=== PATIENT | male | born 1995 | race Hispanic/Latino ===

== ENCOUNTER 2018-03-01 20:51 | Emergency (ER) | payer OTHER, SELFPAY ==
[2018-03-01 21:06] VITALS: BP 123/63; PULSE 72; RESP 15; TEMP 36.7; O2SAT 99
--- NOTE | 2018-03-01 21:09 | DI.CT.S_ITS ---
PROCEDURE: CT HEAD/BRAIN WO CON INDICATIONS: fall, head injury, +LOC TECHNIQUE: Noncontrast 4.5 mm thick angled axial sections acquired from the foramen magnum to the vertex, with coronal and sagittal reformats. For radiation dose reduction, the following was used: automated exposure control, adjustment of mA and/or kV according to patient size. COMPARISON: None. FINDINGS: Image quality: Excellent. CSF spaces: Basal cisterns are patent. No extra-axial fluid collections. Ventricles are normal in size and shape. Brain: No midline shift. No intracranial masses or hemorrhage. Addison-white matter interface is normal. Skull and face: Calvarium and visualized facial bones are intact, without suspicious lesions. Right periorbital and facial soft tissue swelling Sinuses: Visualized sinuses and mastoids are clear. IMPRESSION: No acute intracranial process. Right periorbital/facial soft tissue swelling. Dictated by: Tahir France M.D. on 03/02/2018 at 10:51 Approved by: Tahir France M.D. on 03/02/2018 at 10:52
--- NOTE | 2018-03-01 21:09 | DI.CT.S_ITS ---
PROCEDURE: CT CERVICAL SPINE WO CON INDICATIONS: fall, head injury, midline neck pain TECHNIQUE: Noncontrast 3 mm thick sections acquired from the skull base to the T4 level. Sagittal and coronal reformats were then constructed. For radiation dose reduction, the following was used: automated exposure control, adjustment of mA and/or kV according to patient size. COMPARISON: None. FINDINGS: Image quality: Excellent. Bones: No fractures or dislocations. Visualized superior ribs are intact. Soft tissues: Prevertebral soft tissues are normal in thickness. No paravertebral hematomas. No apical pneumothoraces. IMPRESSION: No fracture. Dictated by: Tahir France M.D. on 03/02/2018 at 10:52 Approved by: Tahir France M.D. on 03/02/2018 at 10:55
--- NOTE | 2018-03-01 21:09 | DI.RAD.S_ITS ---
PROCEDURE: XR RIBS LT MIN 3V W CXR1V INDICATIONS: fall with Left sided rib pain, Shortness of breath, Right clavicle pain TECHNIQUE: 2 views of the left ribs were acquired, along with a single view chest. COMPARISON: None. FINDINGS: Surgical changes and devices: None. Bones and chest wall: No fractures. There is subluxation of the lateral right clavicle relative to the acromion approximately one shaft width. There is also widening of the coracoclavicular interval measuring 25 mm. No suspicious bony lesions. Overlying soft tissues appear unremarkable. Lungs and pleura: No pleural effusions or pneumothorax. Lungs appear clear. Mediastinum: Mediastinal contours appear normal. Heart size is normal. IMPRESSION: No rib fracture. No acute cardiopulmonary disease. Right acromioclavicular separation Dictated by: Tahir France M.D. on 03/02/2018 at 10:31 Approved by: Tahir France M.D. on 03/02/2018 at 10:33
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
[2018-03-01] MEDS: HYDROCODONE/ACET 5/325 PREPACK 1 BOTTLE MISC (22:46)
[2018-03-01 23:33] VITALS: BP 129/63; PULSE 64; RESP 14; O2SAT 96
== END 2018-03-01 23:45 | disposition home or self-care (01) ==
PROVIDERS: Emergency Provider Emergency Medicine
DX: S06.0X9A Concussion with loss of consciousness of unspecified duration, initial encounter (principal); S01.81XA Laceration without foreign body of other part of head, initial encounter; S43.109A Unspecified dislocation of unspecified acromioclavicular joint, initial encounter; V18.0XXA Pedal cycle driver injured in noncollision transport accident in nontraffic accident, initial encounter
CPT/HCPCS: 70450; 71101; 72125; 99282; 99284